=== PATIENT | female | born 1985 | race Caucasian/White ===

== ENCOUNTER 2016-11-12 08:45 | Day surgery (SDC) | payer OTHER ==
[~2016-11-12] VITALS: Ht 180.3 cm; Wt 122.3 kg
--- NOTE | 2016-11-12 07:46 | PCM.HPANE ---
Patient Data Surgeon Admitting Provider: Attending Provider:Sil Uribe MD Primary Care Physician:Meli Belle Other Provider:Annemarie Vera Anesthesia Reason for Visit Pilonidal Cyst Ht/WT & BMI Height (Feet): 5 Height (Inches): 11 Weight (Kilograms): 120.5 Body Mass Index 37.00 Allergies Coded Allergies: No Known Allergies (Unverified , 11/10/16) Past Anesthesia History Anesthesia History: Denies:: Abnormal Airway, Anesthesia Reactions, Difficult Intubation, Fam Anesthesia Reaction, Fam Malignant Hypertherm, Malignant Hyperthermia Diabetes History Hx Diabetes?: No MRSA MRSA: No Medications Hypertension Medication: No Home Meds Incl Beta Ankush: No Reported Medications Omeprazole Magnesium (Prilosec Otc)20 Mg Tablet.dr10 Mg PO TID #1 PKG Ref 0 11/10/16 History History of ENT Problems?: No HEENT History: Denies:: Abnormal Airway Difficult Intubation Denture Type: None Teeth Condition: Within Normal Limits Hx of Heart Problems?: No Cardiovascular History: Denies:: AICD Abdominal Aortic Aneurism Atrial Fibrillation Cardiac Surgery Chest Pain Congestive Heart Failure Coronary Artery Disease Edema Heart Murmur Hypertension Irregular Heartbeat Pacemaker Peripheral Vascular Rheumatic Fever Thrombophlebitis Valvular Heart Disease Hx of Respiratory Problem?: No Respiratory History: Denies:: Asthma COPD Chest Surgery Cough Dyspnea Emphysema Hemoptysis Oxygen Administration Pneumonia Pulmonary Embolism Tuberculosis Use of C-PAP Machine Use of Inhalers / NEBS Hx Neurologic Problems?: No Neurological History: Denies:: Alzheimer's Disease CVA Dementia Dizziness Headaches Multiple Sclerosis Parkinson's Disease Peripheral Neuropathy Seizures TIA Hx of GI Problems?: No Gastrointestinal History: Denies:: Cirrhosis Diverticulitis Gall Bladder Disease Gastroesphageal Reflux Gastrointestinal Bleeding Heartburn Hepatitis Hiatal Hernia Liver Disease Rectal Bleeding Hx of Problems?: No Genitourinary History: Denies:: HX of Hemodialysis Kidney Stones Urinary Tract Infection Female Hx: Denies:: Currently Endometriosis Pelvic Inflammatory Problems with Breasts? Hx Musculoskeletal Problems?: No Hx of Psycho/Social Problems?: No Hx Surgeries?: Yes (wisdom teeth extraction) Hx Any Other Health Problems?: Yes Other History: Denies:: Cancer Endocrine Disease Hospitalization Thyroid Disease History Blood Transfusions: Positive for:: Accept Blood Products? Denies:: Blood Transfusions Hx Diabetes: No Hx Alcohol Use: NoHx Substance Use: No Stop/Bang Treated for Sleep Apnea?: No Do You Have a CPAP Machine?: No S-Snoring: Do You Snore Loudly: Yes T-Tired: feel tired, fatigued: No O-Obsered: Observed not breath: No P-Blood Pressure: treated: No B- Body Mass Index > 35 kg/m2: Yes A- Age over 50: No N- Neck Large Circumference: No G- Gender Male: No MONIKA Total Score: 2 MONIKA Risk Assessment: Low Risk, <3 Yes Risk Assessment Category Category 1A: Patient has history of documented sleep apnea, and HAS NOT received any narcotic, sedative or anesthesia administration during this stay. Category 1B: Patient has history of documented sleep apnea, and HAS received any narcotic , sedative or anesthesia administration during this stay Category 2: Patient has SUSPECTED Obstructive Sleep Apnea, and HAS received any narcotic , sedative or anesthesia administration during this stay. Category 3: Patient has SUSPECTED Obstructive Sleep Apnea and HAS NOT received narcotic, sedative or anesthesia administration during this stay. Category 4: Outpatient in Procedural Areas with known sleep apnea or who screen positive for High Risk via the STOP/BANG questionnaire. Exam Exam General Appearance: Alert, Oriented X3, Cooperative, No Acute Distress HEENT/AIRWAY: MP 2 Lungs: Clear to Auscultation, Normal Air Movement Heart: Exam Unremarkable, Regular Rate/Rhythm, No Murmurs/Rubs/Gallops Plan Impression Patient chart reviewed, patient interviewed and anesthestic plan with risks, benefits, and alternatives discussed, and informed consent obtained. ASA Physical Status: ASA2 Mod Systemic Disease Anesthetic Plan: GA Bene/Risks/Altern/Consents: Yes HP Complete Prior to Induction: Yes Eamon Muhammad MD Nov 12, 2016 07:46
[~2016-11-12 08:45] MED LIST: CeFAZolin Inj 3 GM in IV Premix 1 EACH IV ONE; Dexamethasone 4 mg/mL Inj IVPUSH PRN; EPHEDrine Sulfate 50 mg/mL Inj IVPUSH PRN; HYDROmorphone 1 mg/mL Inj IVPUSH PRN; Lactated Ringer's 1,000 ML IV SCH; Lactated Ringer's 500 ML IV PRN; MetoCLOpramide 5 mg/mL 2 mL Inj IVPUSH PRN; OMEP20TA24 PO; Ondansetron 2 mg/mL 2 mL Inj IVPUSH PRN; Phenylephrine 10,000 mCg/mL Inj IVPUSH PRN; fentaNYL-PF 50 mCg/mL 2 mL Inj IVPUSH PRN
[2016-11-12] MEDS ORDERED: Rocuronium 10 mg/mL 5 mL Inj ONE (08:46)
[2016-11-12] MEDS ORDERED: Ondansetron 2 mg/mL 2 mL Inj ONE (08:46)
[2016-11-12] MEDS ORDERED: Propofol 10,000 mCg/mL 20 mL Inj ONE (08:46)
[2016-11-12] MEDS ORDERED: Dexamethasone 4 mg/mL Inj ONE (08:46)
[2016-11-12] MEDS ORDERED: fentaNYL-PF 50 mCg/mL 2 mL Inj ONE (08:46)
[2016-11-12] MEDS ORDERED: Ketamine 10 mg/mL 20 mL Inj ONE (08:46)
[2016-11-12 09:20] VITALS: BP 116/65; PULSE 86; RESP 16; O2SAT 98
[2016-11-12] MEDS ORDERED: Lactated Ringer's 1,000 ML IV ONE ×2 (11:37→12:35)
[2016-11-12] MEDS ORDERED: Bupivacaine-MPF 0.5% W/EPI 30 mL Inj INFILTRATE ONE (12:08)
[2016-11-12 12:42] VITALS: BP 126/80; PULSE 82; RESP 22; O2SAT 100
[2016-11-12] MEDS ORDERED: oxyCODONE-Acetamin 5-325 mg Tablet PO PRN (12:45)
--- NOTE | 2016-11-12 12:49 | PCM.DISURG ---
Surgical Discharge Instruction Date of Service Nov 12, 2016 Dates of Hospitalization Date of Hospital Admission Providers Admitting Physician: Primary Care Physician: Meli Belle Attending Physician: Sil Uribe MD Diet Discharge Diet: No restrictions Activity Discharge Activity-General: Be up and about, Activity as pain allows, No driving while taking narcotic Dressing and Incisional Care Hygiene: Other (Pack the wound to the base with moist gauze twice per day. ) Follow Up Plan Follow Up Plan Follow up with Dr. Uribe in 2 weeks. Call at any time with questions or concerns. Call your provider for: Fever, Chills, Wound redness, Increasing wound pain, Discharge @ incision, pus discharge, Other (Increasing pain.) David Jay MD Nov 12, 2016 12:49
[2016-11-12 12:50] VITALS: BP 92/73; PULSE 76; RESP 20; O2SAT 100
[2016-11-12 12:55] VITALS: BP 110/54; PULSE 56; RESP 16; O2SAT 100
[2016-11-12 13:23] VITALS: BP 109/60; PULSE 65; RESP 16; O2SAT 100
--- NOTE | 2016-11-12 13:40 | OP ---
[address] [address] OPERATIVE REPORT PATIENT: RAJIV PIPER : 1985 MR#: [id number] ADMIT: 11/12/2016 JOB ID: [id number] DATE OF SURGERY: 11/12/2016 PREOPERATIVE DIAGNOSIS(ES): Pilonidal abscess. POSTOPERATIVE DIAGNOSIS(ES): Pilonidal abscess. PROCEDURE PERFORMED: Incision and drainage of pilonidal abscess. SURGEON: Sil Uribe MD. ASSISTANTS: Zan Jay MD, R3; Demar Edwards MS3. HISTORY PRESENT ILLNESS: This is a 31-year-old woman with a history of a pilonidal abscess. It was treated with a small local clinic procedure involving silver nitrate cautery back in April. Beginning in September, she began to have recurrent symptoms, and had several episodes in which the abscess drained purulent fluid and then seemed to heal. Because of these recurrent symptoms, and her inability to tolerate a larger clinic-based procedure, she was brought to the operating room for incision and drainage and exploration. FINDINGS: 1. There is a deep cath cavity nearly to the tailbone, 6 cm in depth with 5 cm of superior undermining. 2. A very thorough exploration was performed of the entire cavity, and no hairs were seen. DESCRIPTION OF PROCEDURE: The patient was brought to the operating room and placed in supine position. General anesthesia was induced. Antibiotics were infused. She was flipped into a prone position. The operative field was prepped and draped in a sterile fashion. A heating blanket was placed. SCD were placed. A pause was performed to confirm the correct patient, procedure, and site. The patient had a 2 cm x 1 cm scar overlying the gluteal cleft. This was excised with a knife. The underlying tissue was explored, and there was a large cavity, 6 cm in depth and extending 5 cm superiorly, with no active purulence within. The skin incision was extended 1.5 cm superiorly and to the left such that a thorough exploration could be performed in order to look for any underlying hairs. Multiple retractors and a headlamp were used to carefully explore the entire base of the wound from superior to inferior, and there were no hairs within. The cavity was then packed with moist Kerlix. An ABD was placed. The patient was awakened from general anesthesia and taken to the postoperative care unit in good condition. SPECIMENS: None. COMPLICATIONS: None. ESTIMATED BLOOD LOSS: 5 mL.
--- NOTE | 2016-11-12 14:02 | PCM.ANEP1 ---
Post Anesthesia PACU Phase 1 Assessment Vital Signs Vital Signs Date Time Temp Pulse Resp B/P Pulse Ox O2 Delivery O2 Flow Rate FiO2 11/12/16 13:23 65 16 109/60 100 Room Air 11/12/16 12:55 56 16 110/54 100 Room Air 11/12/16 12:50 76 20 92/73 100 Room Air 11/12/16 12:42 36.4 82 22 126/80 100 Simple Mask 10 11/12/16 09:20 36.1 86 16 116/65 98 Room Air Anesthetic Administered: GA Level of Alertness: Awake, talking LERMA's with Equal Strength: Yes Pain: No Nausea or Vomiting: No CV Function & Hydration Stable: Yes Airway Device: natural Lungs: Clear to Auscultation, Normal Air Movement Dermatome Level: Full Sensation PACU Phase 2 Assessment Complications: No Follow up Care: No Patient Instructions Provided: N/A Eamon Muhammad MD Nov 12, 2016 14:02
[2016-11-12 14:06] VITALS: BP 114/49; PULSE 98; RESP 16; O2SAT 100
== END 2016-11-12 23:59 | disposition home or self-care (01) ==
LOC: SAS 08:45
PROVIDERS: ATTEND Surgery
DX: L05.01 Pilonidal cyst with abscess (principal); Z79.899 Other long term (current) drug therapy; Z87.891 Personal history of nicotine dependence
CPT/HCPCS: 11770; J0690; J1100; J2250; J2405; J3010; J7120